=== PATIENT | female | born 1970 | race Caucasian/White ===

== ENCOUNTER → 2019-04-26 10:35 | Outpatient (CLI) | payer OTHER, SELFPAY ==
[2018-01-11 17:44] VITALS: BMI 24.0
[2019-04-26 11:28] LABS: Erythrocyte Sedimentation Rate < 1 mm/hr (0-30)
[2019-04-26 12:03] LABS: ALB/GLOB Ratio 1.2 RATIO (0.9-2.4); AST(SGOT) 24 U/L (15-37); Alanine Aminotransfer ALT/SGPT 44 U/L (13-56); Albumin, Serum 3.9 g/dL (3.2-5.0); Alkaline Phosphatase 81 U/L (45-117); Anion Gap 5 (5-15); BUN 12 mg/dL (7-18); BUN/Creat Ratio 14.6 RATIO (10-20); CRP < 2.90 mg/L (0.0-3.0); Calcium,Total 8.7 mg/dL (8.5-10.1); Chloride 109 mmol/L (98-107); Cholesterol 205 mg/dL (200); Creatinine, Serum 0.82 mg/dL (0.55-1.02); EST Glomerular Filtration Rate 78 mL/min (>60); Est Glom Filt Rate - Afr Amer 95 mL/min (>60); Globulin 3.2 g/dL (2.2-4.2); Glucose 88 mg/dL (74-106); High Density Lipoprotein 77 mg/dL; Potassium 4.3 mmol/L (3.5-5.1); Protein, Total 7.1 g/dL (6.4-8.2); Rheumatoid Factor < 10.0 IU/mL (<15); Sodium Level 144 mmol/L (136-145); Thyroid Stim Hormone (TSH) 1.65 uIU/mL (0.358-3.74); Triglycerides 70 mg/dL; Very Low Density Lipoprotein 14 mg/dL (5-40); Vitamin B12 > 2000 pg/mL (211-911)
[2019-04-28 14:08] LABS: PROEL- A/G Ratio 1.4 (0.7-1.7); PROEL- Albumin 4.1 g/dL (2.9-4.4); PROEL- Alpha-1 Globulin 0.2 g/dL (0.0-0.4); PROEL- Alpha-2 Globulin 0.8 g/dL (0.4-1.0); PROEL- Beta Globulin 1.1 g/dL (0.7-1.3); PROEL- Gamma Globulin 0.8 g/dL (0.4-1.8); PROEL- Globulin, Total 2.9 g/dL (2.2-3.9); PROELU- Albumin, Urine 26.3 % (.); PROELU- Alpha-2-Globulin,Ur 19.3 % (.); PROELU- Beta Globulin, Ur 23.5 % (.); PROELU- Gamma Globulin, Ur 21.9 % (.)
[2019-04-29 13:09] LABS: Total Protein, Ur < 4.0 mg/dL (Not Estab.)
== END ==
PROVIDERS: Family Provider Obstetrics & Gynecology Gynecology; PCP Obstetrics & Gynecology Gynecology; Referring Provider Psychiatry & Neurology Neurology; Visit Provider Psychiatry & Neurology Neurology
DX: Z13.220 Encounter for screening for lipoid disorders (principal); Z13.29 Encounter for screening for other suspected endocrine disorder
CPT/HCPCS: 36415; 80053; 80061; 82607; 84165; 84166; 84443; 85652; 86140; 86431

== ENCOUNTER → 2019-05-12 17:00 | Outpatient (CLI) | payer OTHER, SELFPAY ==
--- NOTE | 2019-05-12 17:07 | BI_ITS ---
MAMMOGRAPHY - BILATERAL SCREENING REASON FOR EXAM: Female, 48 years old. Routine annual screening examination. PERTINENT HISTORY: Non-contributory. TECHNIQUE: Digital bilateral breast amparo (3D mammographic acquisition) in the CC and MLO projections. 2-D mediolateral oblique (MLO) and craniocaudad (CC) views of both breasts were obtained. CAD: Full Field Digital Mammography with Computer Added Detection was performed. COMPARISON: Comparison is made with prior study to May 20, 2017 and May 25, 2014. FINDINGS: Breast Composition: There are scattered areas of fibroglandular density. There are no dominant masses or suspicious calcifications. Benign appearing bilateral axillary lymph nodes. No other significant abnormalities are identified. There has been no significant change since the prior study. BI/SCREENING MAMM (CAD), BILAT IMPRESSION: Stable bilateral screening mammogram. Yearly follow-up mammogram recommended. (A) ASSESSMENT CATEGORY: BIRADS Category 2: Benign. A letter regarding these results will be sent to the patient by the facility within 30 days. Approximately 10% of breast cancers are not detected by mammography. A normal mammogram should not delay biopsy of a clinically suspicious abnormality. [id number] Electronically Signed: Jonathon Barrera, at 10:40 EDT , Service support ,
== END ==
PROVIDERS: Family Provider Obstetrics & Gynecology Gynecology; PCP Obstetrics & Gynecology Gynecology; Referring Provider Obstetrics & Gynecology Gynecology; Visit Provider Obstetrics & Gynecology Gynecology
DX: Z12.31 Encounter for screening mammogram for malignant neoplasm of breast (principal)
CPT/HCPCS: 77067

== ENCOUNTER → 2019-05-20 16:26 | Outpatient (CLI) | payer OTHER, SELFPAY ==
[2018-01-11 17:44] VITALS: BMI 24.0
--- NOTE | 2019-05-20 16:45 | MRI_ITS ---
HISTORY:pain, n/t bilateral upper ext (RTgt;L), headaches pain, n/t bilateral upper ext (RTgt;L), headaches TECHNIQUE: Routine MRI of the cervical spine was performed. IV Contrast dosage and agent: COMPARISON: None FINDINGS: # of images incl. paperwork: 226 VERTEBRAE: Normal vertebral bodies and posterior elements. VERTEBRAL ALIGNMENT: Normal, including the craniocervical junction and cervicothoracic junction. No spondylolisthesis. There is preservation of the normal cervical lordosis. CORD: Unremarkable in signal and morphology. NECK SOFT TISSUES: No prevertebral soft tissue swelling. There is no cervical adenopathy. C2/C3: Normal disc height and morphology. Normal central canal and neuroforamina. C3/C4: Normal disc height and morphology. Normal central canal and neuroforamina. C4/C5: Osteophyte disc complex asymmetric to the left. No canal stenosis. There is mild right and moderate left neural foraminal narrowing C5/C6: Modic type I changes at the endplates There is a osteophyte disc complex minimally effacing the ventral thecal sac. This does not abut the spinal cord. The canals at the lower limits of normal. There is mild bilateral neural foraminal narrowing C6/C7: Normal disc height and morphology. Normal central canal and neuroforamina. C7-T1 no evidence of a disc contour abnormality or canal stenosis. No neural foraminal narrowing MRI/Spine Cervical (Routine) IMPRESSION: Osteophyte disc complex seen at C4-5 and C5-6. At the level of C5-6 the canals at the lower limits of normal There is mild mild right and moderate left neural foraminal narrowing at C4-5 and mild bilateral neuroforaminal narrowing at C5-6 at 1930 Reported and signed by: Yuni Mckinley DO Electronically Signed: Yuni Mckinley DO at 19:29 EDT Tel , Service support ,
== END ==
PROVIDERS: Family Provider Obstetrics & Gynecology Gynecology; PCP Obstetrics & Gynecology Gynecology; Referring Provider Psychiatry & Neurology Neurology; Visit Provider Psychiatry & Neurology Neurology
DX: G62.9 Polyneuropathy, unspecified (principal)
CPT/HCPCS: 72141

== ENCOUNTER → 2019-06-10 12:21 | Outpatient (CLI) | payer OTHER, SELFPAY ==
[2018-01-11 17:44] VITALS: BMI 24.0
--- NOTE | 2019-06-10 14:34 | NEURO ---
NCS and/or EMG Patient Report HPI: 48-year-old female who presented with complaints of numbness and tingling and pain in her right hand which radiates to her shoulder. Patient feels her entire arm goes numb after short period of time of laying on it at night. Patient has experienced headaches and Dr. Morejon ordered an MRI of her neck for cervical radiculopathy. Patient had MRI of cervical spine recently. Patient also complains of weakness in the hands. Physical Exam: Tenderness of right wrist. Tinel's sign slightly positive at right wrist. Weakness of right finger flexors and abductors. Mild sensory deficit in the right hand fingers noted. Findings: 1. There is evidence of prolongation of distal latencies of right median sensory and motor nerve responses. 2. Nerve conduction studies of right ulnar nerve are normal. 3. Needle examination of right upper extremity is normal. Impression: 1. Findings are consistent with moderately severe right median mononeuropathy at wrist due to carpal tunnel syndrome 2. No electrodiagnostic evidence of right ulnar neuropathy. Recommendation: 1. Patient recommended to avoid repetitive right hand movements and heavy lifting. 2. Patient recommended to wear right hand splint as much as possible. 3. Patient recommended to see a hand surgeon for surgical release of right carpal tunnel syndrome if symptoms does not improve.
== END ==
PROVIDERS: Family Provider Obstetrics & Gynecology Gynecology; PCP Obstetrics & Gynecology Gynecology; Referring Provider Psychiatry & Neurology Neurology; Visit Provider Psychiatry & Neurology Neurology
DX: G62.9 Polyneuropathy, unspecified (principal); M54.12 Radiculopathy, cervical region
CPT/HCPCS: 95886; 95908

== ENCOUNTER → 2020-02-24 09:06 | Outpatient (CLI) | payer OTHER, SELFPAY ==
[2018-01-11 17:44] VITALS: BMI 24.0
[2020-02-25 07:54] LABS: SARS-COV-2 TOTAL ABS Nonreactive (Nonreactive)
== END ==
PROVIDERS: PCP Obstetrics & Gynecology Gynecology; Referring Provider Family Medicine; Visit Provider Family Medicine
DX: Z11.59 Encounter for screening for other viral diseases (principal)
CPT/HCPCS: 86769; G2023

== ENCOUNTER → 2020-09-06 10:59 | Outpatient (REF) | payer OTHER, SELFPAY ==
[2018-01-11 17:44] VITALS: BMI 24.0
== END ==
LOC: LABSPEC 10:59
PROVIDERS: PCP Obstetrics & Gynecology Gynecology; Visit Provider Family Medicine
DX: Z20.828 Contact with and (suspected) exposure to other viral communicable diseases (principal)
CPT/HCPCS: 87635; U0005; U0003

== ENCOUNTER → 2021-06-28 07:10 | Outpatient (CLI) | payer OTHER, SELFPAY ==
--- NOTE | 2021-06-28 07:25 | BI_ITS ---
MAMMOGRAPHY - BILATERAL SCREENING REASON FOR EXAM: Female, 50 years old. Routine annual screening examination. PERTINENT HISTORY: Non-contributory. TECHNIQUE: Digital bilateral breast valerie (3D mammographic acquisition) in the CC and MLO projections. 2-D mediolateral oblique (MLO) and craniocaudad (CC) views of both breasts were obtained. CAD: Full Field Digital Mammography with Computer Added Detection was performed. COMPARISON: Comparison is made with prior examination of 05/12/2019 and 05/28/2017. FINDINGS: Breast Composition: There are scattered areas of fibroglandular density. There are no dominant masses or suspicious calcifications. Stable small benign-appearing bilateral lymph nodes. No other significant abnormalities are identified. There has been no significant change since the prior study. BI/SCRN MAMM (CAD)W/VALERIE BILAT IMPRESSION: Stable bilateral screening mammogram. Yearly follow-up mammogram recommended. (A) ASSESSMENT CATEGORY: BIRADS Category 2: Benign. A letter regarding these results will be sent to the patient by the facility within 30 days. Approximately 10% of breast cancers are not detected by mammography. A normal mammogram should not delay biopsy of a clinically suspicious abnormality. [id number] Electronically Signed: Jonathon Barrera MD at 9:57 EDT , Service support ,
== END ==
PROVIDERS: PCP Obstetrics & Gynecology Gynecology; Referring Provider Obstetrics & Gynecology Gynecology; Visit Provider Obstetrics & Gynecology Gynecology
DX: Z12.31 Encounter for screening mammogram for malignant neoplasm of breast (principal)
CPT/HCPCS: 77063; 77067

== ENCOUNTER 2022-04-14 14:07 | Emergency (ER) | payer OTHER, SELFPAY ==
[2022-04-14 14:08] VITALS: BP 126/88; PULSE 95; RESP 16; TEMP 36.9; O2SAT 99; BMI 22.3
[2022-04-14 14:57] LABS: Red Blood Cells-Urine 0 SEEN /hpf (0-5)
[2022-04-14 14:59] LABS: Color, Urine Yellow (Yellow); Glucose, Dipstick Normal (Normal); Ketone-Dipstick 5 mg/dl (Negative); Leukocyte Esterase-Dipstick 25 /ul (Negative); Nitrite-Dipstick Negative (Negative); Occult Blood-Urine 25 /ul (Negative); Protein-Dipstick 30 mg/dl (Negative); Urine Bilirubin Dipstick Negative (Negative); Urine Clarity Sl. Cloudy (Clear); Urine Urobilinogen Normal (Normal)
[2022-04-14 15:02] LABS: Absolute Lymphocyte Count 1.01 X10^3/uL (0.83-4.51); Absolute Neutrophil Count 3.7 X10^3/uL (2.0-7.7); Basophil# 0.01 X10^3/uL; Basophil% 0.2 % (0-1); Eosinophil# 0.03 X10^3/uL; Eosinophils% 0.6 % (0-5); Hematocrit 42.1 % (37-47); Hemoglobin 13.8 g/dL (12.0-15.0); Lymphocyte # 1.01 X10^3/ul (0.83-4.51); Lymphocyte % 20.2 % (19-41); Mean Corp Hgb Conc 32.8 g/dL (32-36); Mean Corpuscular Hgb 29.7 pg (27.0-32.0); Mean Corpuscular Volume 90.7 fL (81-99); Mean Platelet Vol. 11.3 fl (6.2-12.0); NRBC Flagged by Analyzer 0 % (0-5); Neutrophil # 3.72 X10^3/uL (2.7-7.7); Neutrophil % 74.6 % (47-70); Platelet Count 264 K/mm3 (150-450); Red Blood Count 4.64 M/mm3 (4.2-5.4)
[2022-04-14 15:15] LABS: Anion Gap 6 (5-15); BUN 13 mg/dL (7-18); BUN/Creat Ratio 12.9 RATIO (10-20); Calcium,Total 9.3 mg/dL (8.5-10.1); Chloride 106 mmol/L (98-107); Creatinine, Serum 1.01 mg/dL (0.55-1.02); EST Glomerular Filtration Rate 61 mL/min (>60); Est Glom Filt Rate - Afr Amer 74 mL/min (>60); Estimated Creatinine Clearance 50.95 ml/min; Glucose 117 mg/dL (74-106); Potassium 3.3 mmol/L (3.5-5.1); Sodium Level 139 mmol/L (136-145)
[2022-04-14] MEDS: 0.9% Normal Saline 1,000 ML 1000 ML IV (15:19)
--- NOTE | 2022-04-14 15:19 | CT_ITS ---
STUDY: CT ABDOMEN AND PELVIS WITH CONTRAST REASON FOR EXAM: Female, 51 years old. llq pain, nausea, diarrhea, fever/chills RADIATION DOSAGE (If Supplied By Facility): CTDIvol = ( 12.25 ) mGy, DLP = ( 370.80 ) mGycm TECHNIQUE: Transaxial images were obtained from the dome of the diaphragm to the symphysis pubis without oral contrast. Oral and amp;amp; IV and amp;amp; 100mL Isovue-300 was administered. Sagittal and coronal images were reconstructed. Individualized dose optimization techniques were used for this CT. COMPARISON: None. FINDINGS: The visualized lung bases are unremarkable. The visualized portions of the heart are within normal limits. Multiple small hepatic cysts. Normal gallbladder and extrahepatic biliary system. Normal spleen. Normal pancreas. Normal bilateral adrenal glands. Normal right kidney. Normal left kidney. Normal visualized stomach. Normal small intestine. Normal colon. There is non-visualization of the appendix. Normal abdominal aorta. Normal inferior vena cava. Normal retroperitoneum. Normal urinary bladder. Normal abdominal wall. Normal osseous structures. CT/Abdomen/Pelvis W IV Cont ONLY IMPRESSION: Normal enhanced CT of the abdomen and pelvis. Electronically Signed: Merlin Verduzco MD at 16:29 EDT ,
--- NOTE | 2022-04-14 15:20 | ED.VIS.GI ---
HPI HPI - GI History of Present Illness Chief Complaint: Abd Pain Informant: patient Abdominal Pain/Flank Pain Onset: Days (1.5) Context: Gradual Onset Timing: Continuous and Waxes and wanes Quality: Cramping Location: LLQ Current Severity: Moderate Maximum Severity: Moderate Worsened by: Food Relieved by: Nothing Nausea/Vomiting/Emesis GI Symptom: Positive for Nausea; Negative for Vomiting Diarrhea/Melena/Hematochezia GI Symptom: Positive for Diarrhea; Negative for Melena or Hematochezia Onset: Yesterday Stool Quality: Positive for Loose and Watery; Negative for Mucous, Black, Maroon or BRB per rectum Severity: Severe (Every hour or 2 overnight) Associated Symptoms Associated Symptoms: Negative for Dysuria, Frequency, Hematuria or Urgency Narrative Narrative: Healthy patient has been having symptoms of reflux with burning upper chest and her throat when she lies down for the last 3 to 4 months, she has been taking Nexium for that which is helping but not resolving the issue. Over the last day or 2, she has felt fevers, chills, discomfort in her upper abdomen with nausea, bloating with eating, and a lot of diarrhea that started yesterday and progressed overnight. No blood. No recent antibiotics. 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 [facility] Medical History Abdominal pain Carpal tunnel syndrome Fatigue Hay fever Home Medications B-complex with vitamin C 1 cap PO QDAY 01/11/18 [History Last Taken Unknown] ascorbic acid (vitamin C) 60 mg lozenges 60 mg PO BID 01/11/18 [History Last Taken Unknown] cholecalciferol (vitamin D3) 25 mcg (1,000 unit) capsule 1,000 unit PO QDAY 01/11/18 [History Last Taken Unknown] ibuprofen 200 mg capsule 200 mg PO TID-QID PRN Pain 01/11/18 [History Last Taken Unknown] loratadine 10 mg tablet (Claritin) 10 mg PO QDAY 01/11/18 [History Last Taken Unknown] multivitamin 1 cap PO QAM 01/11/18 [History Last Taken Unknown] dicyclomine 10 mg capsule 20 mg PO Q4H PRN PRN abdominal discomfort #30 CAPSULES 04/14/22 [Rx Last Taken Unknown] esomeprazole magnesium 20 mg capsule,delayed release (Nexium) 20 mg PO DAILY 04/14/22 [History Last Taken Unknown] ondansetron 4 mg disintegrating tablet 8 mg PO Q8H PRN PRN Nausea #20 tabs 04/14/22 [Rx Last Taken Unknown] Allergy/AdvReac Type Severity Reaction Status Date / Time Sulfa (Sulfonamide Allergy Unknown Verified 04/14/22 14:09 Antibiotics) Family History (Updated 01/11/18 @ 17:48 by Erica Brooke) Other Diabetes Heart disease Social History Smoking Status: Never smoker alcohol intake: current alcohol intake frequency: a few times a week Alcohol type: wine ROS ROS ED Constitutional Constitutional ED: Reports chills, fever(s) and subjective Eyes Eyes: Denies change in vision or diplopia ENT ENT ED: Denies ear pain, rhinorrhea or sore throat Cardiovascular Cardiovascular: Denies chest pain, orthopnea or palpitations Respiratory/Chest Respiratory/Chest: Denies cough, dyspnea, dyspnea on exertion or orthopnea Gastrointestinal Gastrointestinal: Reports as per HPI, abdominal pain, diarrhea and nausea; Denies melena or vomiting Genitourinary Genitourinary ED: Denies dysuria, hematuria or urinary frequency Musculoskeletal Musculoskeletal: Reports back pain; Denies neck pain Integumentary Denies abscess or rash Neurologic Neurologic: Denies headache(s), paresthesias or weakness Psychiatric Psychiatric: Denies anxiety or suicidal thoughts EXAM Physical Exam Const Vital Signs: 04/14/22 14:08 04/14/22 17:03 Temperature 98.4 F 97.4 F L Temperature Source Temporal Temporal Pulse Rate 95 55 L Respiratory Rate 16 18 Blood Pressure 126/88 H 116/66 Blood Pressure Mean 100 82 Pulse Ox 99 94 Oxygen Delivery Method Room Air Room Air Positive well nourished and well developed General Appearance ED: well developed and NAD HEENT Reports moist mucous membranes normocephalic and atraumatic Eyes PERRL and EOMs intact bilaterally Neck full ROM and supple Resp normal respiratory effort and clear to auscultation bilaterally Cardio regular rate, regular rhythm and no murmurs GI non-distended GI Narrative: Mildly tender epigastrium and left lower quadrant. No guarding or rebound. No palpable mass. Auscultation: normoactive bowel sounds Palpation: soft Back/Spine no CVA tenderness General Back: other FROM Extremity normal to inspection General Extremety ED: Negative for edema, pulses abnormal or tenderness General Extremity: Negative for edema or pulses abnormal Neuro oriented x3, CN's II-XII intact bilaterally and no sensory deficits noted Sensorium / Orientation: awake and alert Motor Exam: strength 5/5 throughout Skin no rashes or lesions noted and no wounds MDM MDM MDM Narrative Medical decision making narrative: Patient with pain and tenderness in left lower quadrant, CT and labs were obtained mainly in order to rule out diverticulitis and other incidental findings that could explain her symptoms. This was basically all negative. She does have a low white blood count, she does have fevers, so I ran a COVID test even though she did a -1 at home yesterday, it is negative again today, I think that is less likely here. I favor functional GI disorders, could also be viral infection, either way usually diarrhea in these cases will be self-limiting. Supportive care advised. She was given medications here including Bentyl, Toradol, and Zofran as well as some Mylanta with simethicone. She did have some improvement. Written for Zofran and dicyclomine to use as needed and follow-up advised. She did not give stool here for us to send for testing but she does not have any risk factors for invasive bacterial etiologies of the diarrhea. Lab Data Attestation: I reviewed the patient's lab results. Labs: Laboratory Results - last 24 hr 04/14/22 04/14/22 04/14/22 14:45 14:48 14:48 WBC 5.0 RBC 4.64 Hgb 13.8 Hct 42.1 MCV 90.7 MCH 29.7 MCHC 32.8 RDW Std Deviation 43.0 RDW Coeff of Alfonso 13.0 Plt Count 264 MPV 11.3 Immature Gran % (Auto) 0.400 Neut % (Auto) 74.6 H Lymph % (Auto) 20.2 [place] % (Auto) 4.0 Eos % (Auto) 0.6 Baso % (Auto) 0.2 Absolute Neuts (auto) 3.7 Absolute Lymphs (auto) 1.01 Nucleated RBC % 0 Sodium 139 Potassium 3.3 L Chloride 106 Carbon Dioxide 27.0 Anion Gap 6 BUN 13 Creatinine 1.01 Estim Creat Clear Calc 50.95 Est GFR (MDRD) Af Amer 74 Est GFR (MDRD) Non-Af 61 BUN/Creatinine Ratio 12.9 Glucose 117 H Calcium 9.3 Total Bilirubin Direct Bilirubin AST ALT Alkaline Phosphatase Total Protein Albumin Globulin Serum , Qual Urine Color Yellow Urine Clarity Sl. Cloudy Urine pH 5.0 Ur Specific [place] 1.020 Urine Protein 30 H Urine Glucose (UA) Normal Urine Ketones 5 H Urine Occult Blood 25 H Urine Nitrite Negative Urine Bilirubin Negative Urine Urobilinogen Normal Ur Leukocyte Esterase 25 H Urine RBC 0 SEEN Urine WBC 0-5 SEEN Ur Squamous Epith Cells 0-5 SEEN Urine Bacteria 2+ Urine Mucus 4+ 04/14/22 04/14/22 14:48 14:48 WBC RBC Hgb Hct MCV MCH MCHC RDW Std Deviation RDW Coeff of Alfonso Plt Count MPV Immature Gran % (Auto) Neut % (Auto) Lymph % (Auto) [place] % (Auto) Eos % (Auto) Baso % (Auto) Absolute Neuts (auto) Absolute Lymphs (auto) Nucleated RBC % Sodium Potassium Chloride Carbon Dioxide Anion Gap BUN Creatinine Estim Creat Clear Calc Est GFR (MDRD) Af Amer Est GFR (MDRD) Non-Af BUN/Creatinine Ratio Glucose Calcium Total Bilirubin 0.60 Direct Bilirubin 0.14 AST 22 ALT 27 Alkaline Phosphatase 89 Total Protein 7.4 Albumin 3.9 Globulin 3.5 Serum , Qual NEGATIVE Urine Color Urine Clarity Urine pH Ur Specific [place] Urine Protein Urine Glucose (UA) Urine Ketones Urine Occult Blood Urine Nitrite Urine Bilirubin Urine Urobilinogen Ur Leukocyte Esterase Urine RBC Urine WBC Ur Squamous Epith Cells Urine Bacteria Urine Mucus Radiography Diagnostic Testing: Clinical Impression(s) from Imaging Studies Abdomen/Pelvis CT 04/14/22 15:19 IMPRESSION: Normal enhanced CT of the abdomen and pelvis. Electronically Signed: Merlin Verduzco MD at 16:29 EDT , Discharge Plan Triage Chief Complaint: Abd Pain ED Provider: Jeb Hogan Dx/Rx/DC Orders Clinical Impression: Acute diarrhea, Epigastric abdominal pain, Abdominal pain, LLQ, Gastroesophageal reflux disease Instructions: ED Diet Vomiting Diarrhea, ED Gastroenteritis, Viral (Adult) Prescriptions: New dicyclomine 10 mg capsule 20 mg PO Q4H PRN PRN (Reason: abdominal discomfort) Qty: 30 0RF ondansetron [ondansetron] 4 mg tablet,disintegrating 8 mg PO Q8H PRN PRN (Reason: Nausea) Qty: 20 0RF No Action multivitamin capsule capsule 1 cap PO QAM ascorbic acid (vitamin C) 60 mg lozenge 60 mg PO BID B-complex with vitamin C capsule capsule 1 cap PO QDAY cholecalciferol (vitamin D3) 1,000 unit capsule 1,000 unit PO QDAY ibuprofen 200 mg capsule 200 mg PO TID-QID PRN (Reason: Pain) loratadine [Claritin] 10 mg tablet 10 mg PO QDAY esomeprazole magnesium [Nexium] 20 mg Capsule,Delayed Release(Dr/Ec) 20 mg PO DAILY Primary Care Provider: Nadia Pitts Referrals: Nadia Pitts MD [Primary Care Provider] - 3-5 Days if not improving Disposition Disposition: Home, Self Care
[2022-04-14 15:22] LABS: Bacteria 2+ /hpf (None Seen); Mucous, Urine 4+ /hpf (<or=2+); Squamous Epithelial Cells - UA 0-5 SEEN /hpf (5-10); White Blood Cells 0-5 SEEN /hpf (0-5)
[2022-04-14 15:59] LABS: Internal QC Validated? YES +Cl - CLEAR BKGD; Pregnancy, Serum, hCG Quali. NEGATIVE Negative
[2022-04-14 16:04] LABS: AST(SGOT) 22 U/L (15-37); Alanine Aminotransfer ALT/SGPT 27 U/L (13-56); Albumin, Serum 3.9 g/dL (3.2-5.0); Alkaline Phosphatase 89 U/L (45-117); Bilirubin, Direct 0.14 mg/dL (0.00-0.30); Globulin 3.5 g/dL (2.2-4.2); Protein, Total 7.4 g/dL (6.4-8.2)
[2022-04-14] MEDS: Mag Hydrox/Al Hydrox/Simeth 30 ML UDC PO (16:14)
[2022-04-14] MEDS: Ketorolac 30 MG/ML Syringe IV (16:15)
[2022-04-14] MEDS: Ondansetron 4 MG/2 ML Vial IV (16:15)
[2022-04-14] MEDS: Dicyclomine 10 MG Capsule 20 MG PO (16:15)
[2022-04-14 17:03] VITALS: BP 116/66; PULSE 55; RESP 18; TEMP 36.3; O2SAT 94
[2022-04-14 17:27] VITALS: BP 116/66; PULSE 55; RESP 18; TEMP 36.3; O2SAT 94
[2022-04-14 20:41] LABS: Lipase 145 U/L (73-393)
== END 2022-04-14 17:28 | disposition home or self-care (01) ==
PROVIDERS: Emergency Provider Emergency Medicine; PCP Obstetrics & Gynecology Gynecology; Visit Provider Emergency Medicine
DX: R19.7 Diarrhea, unspecified (principal); R10.32 Left lower quadrant pain; K21.9 Gastro-esophageal reflux disease without esophagitis; R10.814 Left lower quadrant abdominal tenderness; R50.9 Fever, unspecified
CPT/HCPCS: 74177; 80048; 80076; 81001; 83690; 84703; 85025; 87811; 99284; J7030; Q9967; A4216; J2405

== ENCOUNTER → 2022-08-27 | Outpatient (CLI) | payer OTHER, SELFPAY ==
--- NOTE | 2022-08-27 14:59 | BI_ITS ---
MAMMOGRAPHY - BILATERAL SCREENING REASON FOR EXAM: Female, 51 years old. Routine annual screening examination. PERTINENT HISTORY: Non-contributory. TECHNIQUE: Digital bilateral breast valerie (3D mammographic acquisition) in the CC and MLO projections. 2-D mediolateral oblique (MLO) and craniocaudad (CC) views of both breasts were obtained. CAD: Full Field Digital Mammography with Computer Added Detection was performed. COMPARISON: Mammogram from 06/28/2021, 05/12/2019. FINDINGS: Breast Composition: There are scattered areas of fibroglandular density. There are no dominant masses or suspicious calcifications. No other significant abnormalities are identified. There has been no significant change since the prior study. BI/SCRN MAMM (CAD)W/VALERIE BILAT IMPRESSION: Stable bilateral screening mammogram. Yearly follow-up mammogram recommended. (A) ASSESSMENT CATEGORY: BIRADS Category 1: Negative. A letter regarding these results will be sent to the patient by the facility within 30 days. Approximately 10% of breast cancers are not detected by mammography. A normal mammogram should not delay biopsy of a clinically suspicious abnormality. Electronically Signed: Otf Durán, at 14:06 EST ,
== END | disposition home or self-care (01) ==
LOC: OPBI 14:57
PROVIDERS: PCP Obstetrics & Gynecology Gynecology; Visit Provider Obstetrics & Gynecology Gynecology
DX: Z12.31 Encounter for screening mammogram for malignant neoplasm of breast (principal)
CPT/HCPCS: 77063; 77067